=== PATIENT | male | born 1940 | race Caucasian/White ===

== ENCOUNTER 2017-10-31 12:39 | Observation (INO) | payer MEDICARE ==
[2017-10-31 13:17] LABS: ABS Basophils 0 10^3/ul (0-0.2); ABS Eosinophils 0 10^3/ul (0-0.6); ABS Lymphocytes 1.8 10^3/ul (1.0-4.8); ABS Monocytes 0.5 10^3/ul (0-0.8); ABS Neutrophils 7.8 10^3/ul (1.5-7.7); ABS Nucleated RBC 0 10^3/ul; Eosinophil % 0.1 % (0-6); Hematocrit 46 % (42-52); Hemoglobin 15.5 g/dl (14.0-18.0); Lymphocyte % 17.5 % (25-47); Mean Corpuscular HGB Conc 34 g/dl (31-36); Mean Corpuscular Hemoglobin 31 pg (27-31); Mean Corpuscular Volume 91 fL (80-94); Mean Platelet Volume 8 um3 (7.4-10.4); Nucleated Red Blood Cells % 0; Platelet Count 219 10^3/ul (150-450); Red Blood Count 5.03 10^6/ul (4.0-5.4); Red Cell Distribution Width 14 % (10.5-15); White Blood Count 10.1 10^3/ul (3.5-10.8)
[2017-10-31] MEDS ORDERED: hydrALAZINE IV* 20 MG/ML VIAL IV SLOW PU ONE (13:43)
[2017-10-31 13:48] LABS: EGFR Non-African American 82.3 (>60); INR 3.43 (0.77-1.02)
[2017-10-31] MEDS ORDERED: Aspirin TAB* 325 MG PO ONE (14:01)
[2017-10-31] MEDS ORDERED: Iodixanol* (CONTRAST) 320 MG/ML 100 ML SDV IV ONE (14:37)
--- NOTE | 2017-10-31 15:03 | RAD ---
INDICATION: Chest pain COMPARISON: Similar chest x-ray April 22, 2010 TECHNIQUE: Single AP portable view of the chest was obtained. FINDINGS: Image quality is compromised due to the relative inferiority of a portable chest x-ray. The heart and mediastinum exhibit normal size and contour. The lungs are grossly clear. There is no evidence of a large pleural effusion. Visualized bones are normal for the patient's age. IMPRESSION: No radiographic evidence for acute cardiopulmonary abnormality on this portable chest x-ray.
--- NOTE | 2017-10-31 15:26 | RAD ---
INDICATION: Dizziness and hypertension COMPARISON: CT of the brain dated August 07, 2010 TECHNIQUE: Contiguous axial sections of the brain were obtained from the skull base to the vertex without contrast. FINDINGS: The ventricles, cisterns and sulci exhibit mild symmetrical involutional changes, particularly around the periphery of the brain. This appearance is similar to the 2010 CT examination.. The campa-white matter differentiation is adequately maintained and there is no sulcal effacement. No significant focal abnormality or mass effect is present. There is no evidence for intracranial hemorrhage. Along the right of midline inner table of the occiput there is a low-attenuation 1.5 cm structure possibly representing a complex meningeal cyst. This is unchanged from the prior CT the brain. No significant focal osseous abnormality is present. The visualized portion of the paranasal sinuses appear clear. The mastoid air cells are well aerated bilaterally. IMPRESSION: Stable chronic findings as described above relative to the August 07, 2010 CT the brain without evidence of acute intracranial abnormality.
--- NOTE | 2017-10-31 15:33 | RAD ---
STUDY: CT angiography of the chest, abdomen and pelvis. INDICATION: Chest pain radiating to the back COMPARISON: CT of the chest dated August 18, [address] of the abdomen dated July 09, 2006 TECHNIQUE: Multidetector CT angiography of the chest, abdomen and pelvis were obtained from the lung apices to the ischial tuberosities after the intravenous injection of 100 mL Visipaque 320. Reformats were created in the coronal and sagittal planes. 3-D vascular imaging was created from the source images and reviewed as well. ANGIOGRAPHIC FINDINGS: There is no pathologic widening of the thoracic or abdominal aorta. No dissection is identified. The branch vessels from the arch of the aorta appear to be adequately patent as are the major branch vessels from the abdominal aorta. Contrast fills the bilateral iliac arteries and continues into the proximal femoral arteries. NON ANGIOGRAPHIC FINDINGS: Chest: The lungs are clear. There are no large pleural effusions. There is no mediastinal or hilar lymphadenopathy. There are coronary artery calcifications. Otherwise the heart is grossly normal in appearance. Abdomen & Pelvis: The liver, spleen, pancreas and adrenal glands are grossly normal in appearance. The gallbladder is normal. The kidneys are normal in appearance without focal mass, calcification or signs of hydronephrosis. The renal cortices enhance promptly and symmetrically on arterial phase imaging. Evaluation of the gastrointestinal tract is limited in the absence of oral contrast. The small and large bowel are not distended. The normal-appearing diminutive appendix is likely identified in the right lower quadrant (coronal image 39). Scattered colonic diverticula are seen without signs of acute inflammatory changes characteristic of diverticulitis. There is no gross retroperitoneal or mesenteric lymphadenopathy. The pelvic viscera is normal in appearance. Degenerative changes of the thoracic and lumbar spine include loss of intervertebral disc height and scattered marginal osteophyte formation. No acute fracture or dislocation is identified. IMPRESSION: 1. No aortic dissection, pathologic aneurysmal dilatation or other acute vascular abnormality is identified. 2. There are chronic and degenerative changes described in the body the report that are unlikely to be related to the patient's current acute presentation.
[2017-10-31] MEDS ORDERED: Morphine INJ* 4 MG/ML 1 ML CARPUJECT IV PRN (16:24)
[2017-10-31] MEDS ORDERED: hydrALAZINE IV* 20 MG/ML VIAL IV SLOW PU PRN (16:28)
[2017-10-31] MEDS ORDERED: Dextrose 50% Syringe 50 ML* 25 GM/50 ML SYRINGE IV PUSH PRN (16:34)
[2017-10-31] MEDS ORDERED: Calcium Carbonate CHEW TAB* 500 MG (TUMS) PO PRN (17:17)
[2017-10-31] MEDS: Warfarin TAB(*) 4 MG PO SCH (17:32)
[2017-10-31] MEDS: amLODIPine TAB* 5 MG PO SCH (17:32)
[2017-10-31] MEDS ORDERED: Al Hydrox/Mg Hydrox/Simet LIQ* 30 ML UDC PO PRN (18:59)
--- NOTE | 2017-10-31 20:43 | HP ---
CC: Dr. Verma * [facility] MEDICINE HISTORY AND PHYSICAL: DATE OF ADMISSION: 10/31/17 PRIMARY CARE PHYSICIAN: Dr. Verma. ATTENDING PHYSICIAN: Dr. Marbella Knight *(dictation provided by Radha Dan NP) . CHIEF COMPLAINT: Lightheadedness and low heart rate. HISTORY OF PRESENT ILLNESS: Mr. Lott is a 76-year-old male with a past medical history of diabetes, which is insulin dependent and history of PE on warfarin therapy, who presents to the hospital today with concern for episode this morning of lightheadedness with diaphoresis and noted low heart rate. Mr. Lott states that he has had some issues on and off for the past month with lightheadedness. Over the past two weeks, he has noted it almost everyday. He has also had some intermittent pain in his right shoulder, for which he takes hydrocodone. This morning, when he awoke, he was lightheaded. He also had pain in his right shoulder. He therefore took three hydrocodone as well as his other morning medications. He had his take his blood pressure and she noted it was elevated, but he does not remember the exact read. She also noted that his heart rate was low in the 40s, which seemed unusual for him though he does not know what his heart rate is usually. This low heart rate caused her to be concerned and she encouraged him to come to the emergency room for evaluation. In addition to the complaints of this lightheadedness and right shoulder pain, which is intermittent, he also notes an episode in the fall when he was deer hunting when he walked about 100 feet and became very short of breath and had severe chest pain with a feeling of palpitations. He had a similar episode to that on when he was walking from a driveway into the home, again with severe chest pain, rapid heart rate and shortness of breath. 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 He had a stress test back in 2004 here at our hospital, which was normal exercise test. Beyond this, the patient' s only other positive review of systems is a sensation of popping and pressure in his left ear. 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 In the emergency room, Mr. Lott had labs, which showed a normal troponin at 0.00. His INR is slightly up at 3.43. He is on chronic warfarin therapy for history of DVT and PE. His vitals are stable other than the fact that his blood pressure was elevated as high as 216 on arrival, but now running about 187 /67. His chest x-ray shows no acute process as well as his chest, abdomen and pelvis CTA shows no evidence of aneurysm. PAST MEDICAL HISTORY: 1. 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 2. Prostate cancer, status post radiation. 3. Type 2 diabetes, insulin dependent. 4. Hypertension. 5. Hypothyroidism. MEDICATIONS: Outpatient are: 1. NovoLog insulin 0-18 units approximately subcutaneously t.i.d. per sliding scale. 2. Hydrocodone 5/325 mg as needed for pain. 3. Levothyroxine 150 mcg p.o. daily. 4. Canagliflozin 100 mg p.o. daily. 5. Warfarin 5 mg p.o. daily. 6. Lisinopril 40 mg p.o. daily. 7. Lantus insulin 40 units subcutaneously q.p.m. ALLERGIES: No known drug allergies. FAMILY HISTORY: The patient reports that almost all of the members of his family have a cancer. His mother had breast cancer and of that. Father had prostate cancer. He is one of 13 children and only three siblings are remain alive. He states that all of his brothers had prostate cancer and all of his sisters had breast cancer. He has three sons who have not had any issue with prostate cancer. SOCIAL HISTORY: The patient was a smoker. He smoked for 38 years. He quit in 1979. There is no report of alcohol or drug use. He lives with his , his healthcare proxy. REVIEW OF SYSTEMS: A 14-point review of systems was completed with Mr. Lott and all those not mentioned above were negative. PHYSICAL EXAMINATION GENERAL: Mr. Lott is sitting in the bed. He is in no acute distress. VITAL SIGNS: Temperature 95.1, pulse rate 57, respiratory rate 16, O2 saturation 97% and 93% on room air, blood pressure 187/67. LUNGS: Clear to auscultation bilaterally with no accessory muscle use and good aeration. HEART: S1, S2. No murmur, rub, or gallop and regular. ABDOMEN: Protuberant, but soft, nontender with bowel sounds positive x4. EXTREMITIES: No cyanosis or edema. NEURO: He is alert. He is oriented x3. He moves all extremities equally. There is no facial asymmetry or focal weakness. Extraocular movements are intact. SKIN: Intact. DIAGNOSTIC STUDIES/LAB DATA: WBC 10.0, hemoglobin 15.5, hematocrit 46, platelet count 219. INR 3.43. D-dimer less than 200. Sodium 138, potassium 3.7, chloride 101, serum bicarbonate 28, BUN 15, creatinine 0.9, serum glucose 157, lactic acid 1.8. Troponin is 0.00. EKG shows a sinus rhythm with bradycardia with a heart rate of about 40 with no evidence of ischemia. Chest x-ray shows "no radiographic evidence for acute cardiopulmonary abnormality on this portable chest x-ray." The chest, abdomen, and pelvis CT is read as follows: "No aortic dissection, pathological aneurysmal dilatation. No other acute vascular abnormalities identified. There are chronic and degenerative changes described in the body of the report that are unlikely to be related to the patient's current acute presentation." CT brain is as follows: "Stable chronic findings as described above related to 08/07/10. CT of the brain without evidence of acute intracranial abnormality." ASSESSMENT AND PLAN: Mr. Lott is a 76-year-old male with a past medical history of obesity, distant history of smoking and insulin-dependent diabetes with hypertension, who presents today to the hospital with concern for lightheadedness. This has been going off and on for a month now with concern for perhaps a new bradycardia. On conversation, the patient further describes episodes of severe chest pain with shortness of breath with rapid heart rate with limited exertion. Our plans are for observation in the hospital for the followin. Lightheadedness. The patient reports being lightheaded on and off for a month. He felt very lightheaded today and his heart rate was low. It was unclear what his baseline heart rate is, but here in the emergency room he is running about 50 with a sinus bradycardia. Given the overall description of his complaints over the past few months, I do not necessarily suspect that bradycardia is the root of his illness and I am more concerned for coronary artery disease and unstable angina. His first troponin is negative. Plan to repeat troponins x2. He will be on the electronic device monitor. He will have a transthoracic echocardiogram and Dr. Blake will consult with him tomorrow or sooner if needed should his testing or symptoms become more concerning. I will check orthostatic vital signs. 2. Chest pain with exertion and concern for unstable angina: The patient reports a rapid heart rate, chest pain and shortness of breath with limited activity on two separate occasions. I am very concerned that this reflects coronary artery disease. Plan for telemetry monitoring, troponin trending and echocardiogram tomorrow. Dr. Blake will see the patient in consultation. He will have morphine available as needed should he develop pain as well as repeat EKGs, nitroglycerin and oxygen. 3. Type 2 diabetes. Plan to start with a reduced dose of his p.m. Lantus given that I suspect to have more limited oral intake than at home. He will have 30 units subcutaneously tonight with blood glucoses q.a.c. with a lispro sliding scale. We will check hemoglobin A1c. 4. Hypertension. Continue lisinopril. I am also adding amlodipine and have her hydralazine available p.r.n. 5. History of DVT and PE. Plan to continue warfarin at a slightly lower dose this evening of 4 mg given that he is supratherapeutic. 6. Chronic right shoulder pain. Plan to continue hydrocodone p.r.n. 7. Hypothyroidism. Continue levothyroxine. 8. Code status is full code. This was reviewed with the patient today at the bedside. 9. Disposition to telemetry floor. TIME SPENT: Approximately 60 minutes were spent on the admission of this patient, more than half of the time was spent with the patient at the bedside reviewing the events leading up to this hospitalization, performing the physical examination, and reviewing my plan of care. RADHA DAN, EMILIE [id number]/[facility] #: [id number] CHER
[2017-10-31] MEDS: Insulin GLARGINE(*) 1 UNITS UNIT SUBCUT SCH (21:14)
[2017-11-01] MEDS: HYDROcodone/ACETAMIN 5-325 MG* 1 TAB PO PRN ×2 (03:39→19:52)
[2017-11-01] MEDS: Levothyroxine TAB* 150 MCG TAB PO SCH (05:41)
[2017-11-01 07:15] LABS: INR 3.24 (0.77-1.02)
[2017-11-01] MEDS: Lisinopril TAB* 10 MG PO SCH (09:02)
[2017-11-01] MEDS: amLODIPine TAB* 5 MG PO SCH (09:02)
[2017-11-01] MEDS: Insulin LISPRO* 1 UNITS UNIT SUBCUT SCH ×3 (09:02→17:43)
[2017-11-01] MEDS ORDERED: Perflutren Lipid Microsphere* 3 ML VIAL ONE (11:39)
--- NOTE | 2017-11-01 12:53 | PN ---
Subjective Date of Service: 11/01/17 Interval History: Patient seen and examined. States no SOB at rest, no current dizziness or palpitations at present. Sitting up in chair. Denies any further complaints. Objective Active Medications: Hydrocodone Bitart/Acetaminophen ([place] 5-325 Tab*) 1 tab PO Q4H PRN PRN Reason: PAIN Last Admin: 11/01/17 03:39 Dose: 1 tab Al Hydrox/Mg Hydrox/Simethicone (Maalox Plus*) 30 ml PO Q2H PRN PRN Reason: INDIGESTION Amlodipine Besylate (Norvasc Tab*) 5 mg PO DAILY [facility] Last Admin: 11/01/17 09:02 Dose: 5 mg Calcium Carbonate (Tums*) 500 mg PO Q4H PRN PRN Reason: HEARTBURN Last Admin: 10/31/17 17:31 Dose: 500 mg Dextrose (D50w Syringe 50 Ml*) 12.5 gm IV PUSH .FOR FS < 60 - SS PRN PRN Reason: FS < 60 Hydralazine HCl (Apresoline Iv*) 5 mg IV SLOW PU Q6H PRN PRN Reason: SBP > 180 Insulin Glargine (Lantus(*)) 30 units SUBCUT 2100 [facility] Last Admin: 10/31/17 21:14 Dose: 30 unit Insulin Human Lispro (Humalog*) 0 units SUBCUT AC [facility] PRN Reason: Protocol Last Admin: 11/01/17 09:02 Dose: Not Given Levothyroxine Sodium (Synthroid Tab*) 150 mcg PO DAILY@0600 [facility] Last Admin: 11/01/17 05:41 Dose: 150 mcg Lisinopril (Prinivil Tab*) 40 mg PO DAILY [facility] Last Admin: 11/01/17 09:02 Dose: 40 mg Morphine Sulfate (Morphine Inj (Syringe)*) 4 mg IV Q4H PRN PRN Reason: PAIN Pharmacy Profile Note (Coumadin Daily Reminder*) 0 note FOLLOW UP 1700 [facility] Last Admin: 10/31/17 17:33 Dose: 1 note Warfarin Sodium (Coumadin Tab(*)) 4 mg PO DAILY@1700 [facility] PRN Reason: Protocol Last Admin: 10/31/17 17:32 Dose: 4 mg Vital Signs - 8 hr 11/01/17 11/01/17 11/01/17 05:46 07:36 08:00 Temperature 97.4 F Pulse Rate 58 Respiratory 20 16 16 Rate Blood Pressure 147/57 (mmHg) O2 Sat by Pulse 98 98 Oximetry 11/01/17 11:04 Temperature 97.4 F Pulse Rate 63 Respiratory 16 Rate Blood Pressure 143/67 (mmHg) O2 Sat by Pulse 97 Oximetry Oxygen Devices in Use Now: None Appearance: Alert, NAD Eyes: No Scleral Icterus, PERRLA Ears/Nose/Mouth/Throat: NL Teeth, Lips, Gums Neck: NL Appearance and Movements; NL JVP Respiratory: Symmetrical Chest Expansion and Respiratory Effort, Clear to Auscultation Cardiovascular: NL Sounds; No Murmurs; No JVD, RRR, No Edema Abdominal: NL Sounds; No Tenderness; No Distention Extremities: No Edema, No Clubbing, Cyanosis Skin: No Rash or Ulcers Neurological: Alert and Oriented x 3, NL Sensation, NL Gait, NL Muscle Strength and Tone Nutrition: Taking PO's, - Result Diagrams: 10/31/17 13:02 10/31/17 13:02 Assess/Plan/Problems-Billing Assessment: This is a 76 year old male with history of DVT, PE, DM, hypothyroidism that presented to ER with c/o palpitations, lightheadedness and dizziness, with negative troponins and no acute changes on his EKG. - Patient Problems (1) Heart palpitations Code(s): R00.2 - PALPITATIONS SNOMED Code(s): 76957976 Comment: - Remain on tele - Recommend stress test, trop neg x2 - Walking did not induce symptoms, discussed with Dr. Blake - Pending ECHO today (2) History of pulmonary embolus (PE) Code(s): Z86.711 - PERSONAL HISTORY OF PULMONARY EMBOLISM SNOMED Code(s): 449408580 Comment: - On coumadin - INR 3.24 today - CT chest/abd/pelvis with no new findings (3) Diabetes Code(s): E11.9 - TYPE 2 DIABETES MELLITUS WITHOUT COMPLICATIONS SNOMED Code(s) : 64549069 Comment: - BG stable on lantus and lispro SS (4) Hypertension Code(s): I10 - ESSENTIAL (PRIMARY) HYPERTENSION SNOMED Code(s): 78319042 Comment: - Continue lisinopril daily with hydralizine PRN (5) Hypothyroid Code(s): E03.9 - HYPOTHYROIDISM, UNSPECIFIED SNOMED Code(s): 79299647 Comment: - Synthroid daily Status and Disposition: Remain inpatient for ECHO and stress r/o ACS Counseling and/or Coordination of Care Minutes: coordinated with patient and Dr. Blake
--- NOTE | 2017-11-01 13:55 | ECHO ---
Patient: ELLIE WALDRON [facility] Rec#: [id number] : 1940 Date: 11/01/2017 Age: 76y Height: 182.88 cm / 72.0 in Weight: 133.81 kg / 294.9 lbs Sex: M BSA: 2.51 Room#: 431 Admit Date#: 10/31/2017 Type: Inpatient Referring: Radha Dan NP Reading: Lidia Blake MD Exercise Physiologist Certified: Kendy Vasques RDCS CC: Demarcus Verma MD Transthoracic Echocardiogram Indication: CP BP: 148/60 HR: 86 Rhythm: NSR Findings History: PE with DVT in the past,prostate cancer with radiation,DM,HTN, hypothyroid. Technical Comments: The study is technically limited due to patient body habitus. 4 ml Definity used for image enhancement. Left Ventricle: The left ventricular chamber size is normal. Moderate concentric left ventricular hypertrophy is observed. There is normal left ventricular systolic function. The estimated ejection fraction is 50-55%. Abnormal left ventricular diastolic function is observed. Left Atrium: The left atrial chamber size is normal. Right Ventricle: The right ventricle is mildly dilated. The right ventricular global systolic function is normal. Right Atrium: The right atrial cavity size is normal. Aortic Valve: The aortic valve is trileaflet. The aortic valve leaflets appear mildly sclerotic. There is no evidence of aortic regurgitation. There is no evidence of aortic stenosis. Mitral Valve: The mitral valve leaflets appear normal. There is a trace of mitral regurgitation. There is no evidence of mitral stenosis. Tricuspid Valve: The tricuspid valve leaflets are normal. There is a physiologic tricuspid regurgitation. Unable to estimate the right ventricular systolic pressure. There is no tricuspid stenosis. Pulmonic Valve: The pulmonic valve appears normal. There is trace to mild pulmonic regurgitation. There is no pulmonic stenosis. Pericardium: A pericardial fat pad is visualized. Aorta: There is mild dilatation of the ascending aorta. There is mild dilatation of the aortic root. Pulmonary Artery: The main pulmonary artery appears normal. Venous: The venous system is not well visualized. Contrast: Definity was used to optimize study. Intravenous contrast was used to enhance endocardial border definition. Conclusions Moderate concentric left ventricular hypertrophy is observed. There is normal left ventricular systolic function. The estimated ejection fraction is 50-55%. Abnormal left ventricular diastolic function is observed. The right ventricular global systolic function is normal with mild chamber dilatation. The aortic valve leaflets appear mildly sclerotic with normal function. There is a trace of mitral regurgitation. There is a trace tricuspid regurgitation. Compared with prior echo of 06/06/2007, LVH has progressed from mild, LVEF is stable, MR previously mild. There is mild dilatation of the ascending aorta. Measurements Name Value Normal Range RVIDd (AP) 2D 3 cm (0.9 - 2.6) IVSd (2D) 1.6 cm (0.6 - 1) LVPWd (2D) 1.2 cm (0.6 - 1) LVIDd (2D) 3.7 cm (3.6 - 5.4) LVIDs (2D) 2.9 cm - LV FS (2D) 17 % (25 - 45) Aortic Annulus 2.4 cm (1.4 - 2.6) Ao root diameter (2D) 3.9 cm (2.1 - 3.5) Ascending Ao 3.5 cm (2.1 - 3.4) Aortic arch 3.1 cm (1.8 - 3.4) Descending Ao 0.6 cm - LA dimension (AP) 2D 3.3 cm (2.3 - 3.8) Name Value Normal Range MV E-wave Vmax 0.8 m/sec - MV deceleration time 274 msec - MV A-wave Vmax 0.9 m/sec - MV E:A ratio 0.88 ratio - LV septal e' Vmax 0.07 m/sec - LV lateral e' Vmax 0.07 m/sec - LV E:e' septal ratio 11.42 ratio - LV E:e' lateral ratio 11.42 ratio - Name Value Normal Range AV Vmax 1.4 m/sec - AV VTI 28.9 cm - AV peak gradient 7.32 mmHg - AV mean gradient 3.3 mmHg - LVOT Vmax 1.1 m/sec - LVOT VTI 27.2 cm - LVOT peak gradient 4.49 mmHg - LVOT mean gradient 1.99 mmHg - Name Value Normal Range PV Vmax 1 m/sec - PV peak gradient 4.09 mmHg -
[2017-11-01] MEDS: Warfarin TAB(*) 4 MG PO SCH (17:46)
[2017-11-01] MEDS: Insulin GLARGINE(*) 1 UNITS UNIT SUBCUT SCH (20:11)
--- NOTE | 2017-11-01 22:47 | CONS ---
CC: Dr. Demarcus Verma * CONSULTATION REPORT: DATE OF CONSULT: 11/01/17 REASON FOR CONSULT: Diaphoresis and bradycardia. CHIEF COMPLAINT: Intermittent lightheadedness. HISTORY OF PRESENT ILLNESS: Mr. Lott is a 76-year-old gentleman with no prior identified cardiac history, but he has multiple atherosclerotic risks. The patient states that he has had several episodes of excise-induced problems. Earlier in the year when he was hunting, he got very winded and lightheaded and his heart was racing and he had significant chest pain with this. Then on , he took a short walk and his heart was pounding and he rested and it took 2 hours for his heart pounding to resolve. The patient says he will feel okay in the morning, but when he stands up he will get lightheaded. He checked his sugar more than once and most recently it was 112 and he typically does not get symptoms unless it is below 100. On the day of admission, the patient had some pain in the right shoulder for which he took oxycodone but had already developed lightheadedness and sweatiness. His checked his vitals and found his heart rate in the 40s. He said his heart rate is usually in the 90s, so they came to the emergency department. The patient states that he has also had recent elevations in blood pressure. He is not sure why his blood pressure is up. There are no new medications. He admits that he does not watch his salt, but does not think he has been eating particularly differently. PAST MEDICAL HISTORY: The patient has a past medical history of: 1. Type 2 diabetes with peripheral neuropathy, insulin dependent. 2. Hypertension, 3. Hypothyroid disease. 4. Morbid obesity. 5. Pulmonary embolus in 2006. 6. 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 7. Prostate cancer status post radiation. 8. Sleep apnea per patient. 9. Degenerative arthritis. PAST SURGICAL HISTORY: Per patient, two operations for sleep apnea. MEDICATIONS: Current inpatient medications include: 1. Tylenol with Codeine p.r.n. 2. Maalox p.r.n. 3. Norvasc 5 mg a day. 4. Tums p.r.n. heartburn. 5. Hydralazine p.r.n. 6. Lantus insulin. 7. Lispro insulin. 8. Synthroid 150 mcg a day. 9. Lisinopril 40 mg a day. 10. Morphine p.r.n. 11. Coumadin. ALLERGIES: He has no known drug allergies. FAMILY HISTORY: Significant for his brother of a heart attack in the [facility] parking lot at the age of 54. His mother has a history of breast cancer, father has history of prostate cancer. He is from a family of 13 siblings with multiple siblings having breast cancer and prostate cancer. SOCIAL HISTORY: The patient stopped smoking in 1979. No history of alcohol or recreational drug abuse. He works actively in a [employer] company. He says the most active thing he does is hoisting himself up into the trucks. REVIEW OF SYSTEMS: Negative for recent fevers, chills, sweats. He is positive for orthopnea. He sleeps in a chair and has some significant trouble breathing. No acute changes. No constipation or diarrhea. He does admit to chronic indigestion for which he takes an [id number] pill with good results. He had indigestion last night with a meal here. His indigestion symptoms do not come on with exertion. He describes peripheral neuropathy in the feet and other review of systems is unremarkable, see history of present illness for recent chest pounding, racing, chest pain, lightheadedness and his 's documenting bradycardia. PHYSICAL EXAMINATION: General: Elderly gentleman lying at 30 degrees, appears comfortable very obese, predominantly centripetally obese. Vital Signs: The patient is 6 feet, weighs 284 pounds with a BMI of 38.5. Vital signs today showed blood pressure 147/57 with a pulse of 57. Admission vitals showed blood pressure 216/68, pulse was 49, oxygen saturation 94%, temperature 95.1, respiratory rate was 20. Psychologically, pleasant and cooperative. Neurologically, awake, alert and oriented to person, place and time. Cranial nerves II through XII intact. Grossly normal sensory and motor function in the upper and lower extremities, gait not checked at this time. Skin: Warm and dry. No appreciable cyanosis or rashes. HEENT: Pupils are equal and round. Mucous membranes moist. Neck: Thick from obesity without appreciable thyromegaly. Good carotid pulses without audible bruits. Lungs: Breath sounds distant from obesity, but clear. No wheezes, rales, or rhonchi. He has a small sebaceous cyst noted on his left posterior shoulder incidentally. Coronary: S1 and S2 regular also distant, but no murmurs or rubs. Abdomen: Very overweight. Active bowel sounds, soft, nontender. No appreciable hepatomegaly. Extremities: Lower extremities are nonedematous, warm with 1-2+ dorsalis pedis pulses that are symmetrical. DIAGNOSTIC STUDIES/LAB DATA: A 12-lead ECG on arrival at the emergency department on 10/31/17 showed sinus bradycardia at 45 beats a minute, QRS axis of -15, normal AV and IV conduction times, normal ST segments. Corrected QT interval of 439 milliseconds. When this is compared with a previous ECG of , the rate has decreased from 60 beats a minute, but is otherwise stable. ECG #2 from the shows normal sinus rhythm of 81 beats a minute, QRS axis -7 , normal AV and IV conduction times and normal ST segment. CT angiogram of the chest and abdomen showed no dissection, degenerative changes noted. Brain CT showed stable chronic findings, low attenuation 1.5 cm structure possibly a complex meningeal cyst unchanged from ECG of 2009 Chest x-ray: No acute disease. The most recent echo in our system is 2006 showing mild left ventricular hypertrophy with a wall thickness of 1.3 cm and an ejection fraction of 55% and no evidence of significant valvular issues. The right ventricular systolic function was normal. Labs: Sodium 138, potassium 3.7, chloride 101, bicarb 28, BUN 15, creatinine 0.9, glucose 157, ALT 23. Total cholesterol 178, triglycerides 201, LDL cholesterol 102, HDL cholesterol 36. White count 10.1, hemoglobin 15.5, platelets 219, INR of 4.43, and PTT 50. IMPRESSION: In summary, Joi Lott is a 76-year-old gentleman with several episodes recently, a couple of exertional symptoms with chest pounding and chest pain that are new for him and several episodes of feeling lightheaded and most recently an episode of diaphoresis and lightheadedness associated with low blood pressure. On admission, the patient was bradycardic and hypertensive with an otherwise unremarkable EKG, normal troponin. It is possible that uncontrolled hypertension could be behind his acute presentation. Saying this, his symptoms with hunting and on are concerning for a possible angina and/or possible tachyarrhythmia. In addition to the rule out protocol and optimization of blood pressure control, I do think the patient should undergo a stress test, ideally an exercise stress test if his arthritis allows. I think this is especially important with his brother's history of dying at age 54 of a heart attack. In the interim, I would like to ambulate him on the telemetry on the floor. To date his monitor has not shown symptomatic bradycardia, has not shown blocked beats, dropped beats or tachyarrhythmias. This patient going forward with optimization of lifestyle with weight loss and better diet would be optimal to improve his atherosclerotic and general health risk. [id number]/[facility] #: [id number] CHER
[2017-11-02] MEDS: Levothyroxine TAB* 150 MCG TAB PO SCH (05:03)
[2017-11-02] MEDS: Insulin LISPRO* 1 UNITS UNIT SUBCUT SCH ×3 (08:28→17:25)
[2017-11-02] MEDS: amLODIPine TAB* 5 MG PO SCH (08:29)
[2017-11-02] MEDS: Lisinopril TAB* 10 MG PO SCH (08:29)
--- NOTE | 2017-11-02 11:21 | PN ---
Subjective Date of Service: 11/02/17 Interval History: Patient seen and examined. No acute overnight events. Denies chest pain, no SOB. Feeling well. States no further episodes of dizziness or near syncope. Had walk test around the unit yesterday with no changes on tele and no replication of symptoms. Objective Active Medications: Hydrocodone Bitart/Acetaminophen ([place] 5-325 Tab*) 1 tab PO Q4H PRN PRN Reason: PAIN Last Admin: 11/01/17 19:52 Dose: 1 tab Al Hydrox/Mg Hydrox/Simethicone (Maalox Plus*) 30 ml PO Q2H PRN PRN Reason: INDIGESTION Amlodipine Besylate (Norvasc Tab*) 5 mg PO DAILY [facility] Last Admin: 11/02/17 08:29 Dose: 5 mg Calcium Carbonate (Tums*) 500 mg PO Q4H PRN PRN Reason: HEARTBURN Last Admin: 10/31/17 17:31 Dose: 500 mg Dextrose (D50w Syringe 50 Ml*) 12.5 gm IV PUSH .FOR FS < 60 - SS PRN PRN Reason: FS < 60 Hydralazine HCl (Apresoline Iv*) 5 mg IV SLOW PU Q6H PRN PRN Reason: SBP > 180 Insulin Glargine (Lantus(*)) 30 units SUBCUT 2100 [facility] Last Admin: 11/01/17 20:11 Dose: 30 unit Insulin Human Lispro (Humalog*) 0 units SUBCUT AC [facility] PRN Reason: Protocol Last Admin: 11/02/17 08:28 Dose: 3 units Levothyroxine Sodium (Synthroid Tab*) 150 mcg PO DAILY@0600 [facility] Last Admin: 11/02/17 05:03 Dose: 150 mcg Lisinopril (Prinivil Tab*) 40 mg PO DAILY [facility] Last Admin: 11/02/17 08:29 Dose: 40 mg Morphine Sulfate (Morphine Inj (Syringe)*) 4 mg IV Q4H PRN PRN Reason: PAIN Pharmacy Profile Note (Coumadin Daily Reminder*) 0 note FOLLOW UP 1700 [facility] Last Admin: 11/01/17 17:46 Dose: 1 note Warfarin Sodium (Coumadin Tab(*)) 4 mg PO DAILY@1700 [facility] PRN Reason: Protocol Last Admin: 11/01/17 17:46 Dose: 4 mg Vital Signs - 8 hr 11/02/17 11/02/17 11/02/17 03:47 07:43 08:00 Temperature 97.4 F 97.9 F Pulse Rate 65 61 Respiratory 16 16 16 Rate Blood Pressure 153/69 156/64 (mmHg) O2 Sat by Pulse 98 98 98 Oximetry Oxygen Devices in Use Now: None Appearance: Alert, resting, NAD Eyes: No Scleral Icterus, PERRLA Ears/Nose/Mouth/Throat: NL Teeth, Lips, Gums, Mucous Membranes Moist Neck: NL Appearance and Movements; NL JVP, Trachea Midline Respiratory: Symmetrical Chest Expansion and Respiratory Effort, Clear to Auscultation Cardiovascular: NL Sounds; No Murmurs; No JVD, RRR Abdominal: NL Sounds; No Tenderness; No Distention Extremities: No Edema Neurological: Alert and Oriented x 3 Nutrition: Taking PO's Result Diagrams: 10/31/17 13:02 10/31/17 13:02 Diagnostic Imaging: Patient: ELLIE WALDRON [facility] Rec#: [id number] : 1940 Date: 11/01/2017 Age: 76y Height: 182.88 cm / 72.0 in Weight: 133.81 kg / 294.9 lbs Sex: M BSA: 2.51 Room#: 431 Admit Date#: 10/31/2017 Type: Inpatient Referring: Radha Dan NP Reading: Lidia Blake MD Attorney At Law: Kendy Vasques RDCS CC: Demarcus Verma MD Transthoracic Echocardiogram Indication: CP BP: 148/60 HR: 86 Rhythm: NSR Findings History: PE with DVT in the past,prostate cancer with radiation,DM,HTN, hypothyroid. Technical Comments: The study is technically limited due to patient body habitus. 4 ml Definity used for image enhancement. Left Ventricle: The left ventricular chamber size is normal. Moderate concentric left ventricular hypertrophy is observed. There is normal left ventricular systolic function. The estimated ejection fraction is 50-55%. Abnormal left ventricular diastolic function is observed. Left Atrium: The left atrial chamber size is normal. Right Ventricle: The right ventricle is mildly dilated. The right ventricular global systolic function is normal. Right Atrium: The right atrial cavity size is normal. Aortic Valve: The aortic valve is trileaflet. The aortic valve leaflets appear mildly sclerotic. There is no evidence of aortic regurgitation. There is no evidence of aortic stenosis. Mitral Valve: The mitral valve leaflets appear normal. There is a trace of mitral regurgitation. There is no evidence of mitral stenosis. Tricuspid Valve: The tricuspid valve leaflets are normal. There is a physiologic tricuspid regurgitation. Unable to estimate the right ventricular systolic pressure. There is no tricuspid stenosis. Pulmonic Valve: The pulmonic valve appears normal. There is trace to mild pulmonic regurgitation. There is no pulmonic stenosis. Pericardium: A pericardial fat pad is visualized. Aorta: There is mild dilatation of the ascending aorta. There is mild dilatation of the aortic root. Pulmonary Artery: The main pulmonary artery appears normal. Venous: The venous system is not well visualized. Contrast: Definity was used to optimize study. Intravenous contrast was used to enhance endocardial border definition. Conclusions Moderate concentric left ventricular hypertrophy is observed. There is normal left ventricular systolic function. The estimated ejection fraction is 50-55%. Abnormal left ventricular diastolic function is observed. The right ventricular global systolic function is normal with mild chamber dilatation. The aortic valve leaflets appear mildly sclerotic with normal function. There is a trace of mitral regurgitation. There is a trace tricuspid regurgitation. Compared with prior echo of 06/06/2007, LVH has progressed from mild, LVEF is stable, MR previously mild. There is mild dilatation of the ascending aorta. Measurements Name Value Normal Range RVIDd (AP) 2D 3 cm (0.9 - 2.6) IVSd (2D) 1.6 cm (0.6 - 1) LVPWd (2D) 1.2 cm (0.6 - 1) LVIDd (2D) 3.7 cm (3.6 - 5.4) LVIDs (2D) 2.9 cm - LV FS (2D) 17 % (25 - 45) Aortic Annulus 2.4 cm (1.4 - 2.6) Ao root diameter (2D) 3.9 cm (2.1 - 3.5) Ascending Ao 3.5 cm (2.1 - 3.4) Aortic arch 3.1 cm (1.8 - 3.4) Descending Ao 0.6 cm - LA dimension (AP) 2D 3.3 cm (2.3 - 3.8) Name Value Normal Range MV E-wave Vmax 0.8 m/sec - MV deceleration time 274 msec - MV A-wave Vmax 0.9 m/sec - MV E:A ratio 0.88 ratio - LV septal e' Vmax 0.07 m/sec - LV lateral e' Vmax 0.07 m/sec - LV E:e' septal ratio 11.42 ratio - LV E:e' lateral ratio 11.42 ratio - Name Value Normal Range AV Vmax 1.4 m/sec - AV VTI 28.9 cm - AV peak gradient 7.32 mmHg - AV mean gradient 3.3 mmHg - LVOT Vmax 1.1 m/sec - LVOT VTI 27.2 cm - LVOT peak gradient 4.49 mmHg - LVOT mean gradient 1.99 mmHg - Name Value Normal Range PV Vmax 1 m/sec - PV peak gradient 4.09 mmHg - Assess/Plan/Problems-Billing Assessment: This is a 76 year old male with history of DVT, PE, DM, hypothyroidism that presented to ER with c/o palpitations, lightheadedness and dizziness, with negative troponins and no acute changes on his EKG, but strong familial history of sudden cardiac . - Patient Problems (1) Heart palpitations Code(s): R00.2 - PALPITATIONS SNOMED Code(s): 49846860 Comment: - Remain on tele - Exercise stress in AM - trop neg x2 - ECHO as above, no acute changes (2) History of pulmonary embolus (PE) Code(s): Z86.711 - PERSONAL HISTORY OF PULMONARY EMBOLISM SNOMED Code(s): 040879281 Comment: - On coumadin - INR 3.24 11/01 - CT chest/abd/pelvis with no new findings (3) Diabetes Code(s): E11.9 - TYPE 2 DIABETES MELLITUS WITHOUT COMPLICATIONS SNOMED Code(s) : 73731902 Comment: - BG remains stable on lantus and lispro SS - Hgb A1c 7.6 (4) Hypertension Code(s): I10 - ESSENTIAL (PRIMARY) HYPERTENSION SNOMED Code(s): 91345866 Comment: - Continue lisinopril daily with hydralizine PRN, stable (5) Hypothyroid Code(s): E03.9 - HYPOTHYROIDISM, UNSPECIFIED SNOMED Code(s): 82029788 Comment: - Synthroid daily Status and Disposition: Remain inpatient stress in AM to r/o ACS Counseling and/or Coordination of Care Minutes: coordinated with patient and staff
[2017-11-02] MEDS: HYDROcodone/ACETAMIN 5-325 MG* 1 TAB PO PRN (11:30)
[2017-11-02] MEDS: Clobetasol 0.05% OINT* 30 GM TUBE TOPICAL SCH ×2 (15:51→20:58)
[2017-11-02] MEDS: Warfarin TAB(*) 4 MG PO SCH (17:26)
[2017-11-02] MEDS: Insulin GLARGINE(*) 1 UNITS UNIT SUBCUT SCH (20:58)
[2017-11-03] MEDS: Levothyroxine TAB* 150 MCG TAB PO SCH (05:33)
[2017-11-03] MEDS: Insulin LISPRO* 1 UNITS UNIT SUBCUT SCH ×2 (07:18→12:08)
[2017-11-03] MEDS ORDERED: Aminophylline IV* 25 MG/ML 10 ML VIAL ONE (09:07)
[2017-11-03] MEDS ORDERED: Regadenoson* 0.4 MG/5 ML SYRINGE ONE (09:07)
[2017-11-03] MEDS: amLODIPine TAB* 5 MG PO SCH (10:24)
[2017-11-03] MEDS: Clobetasol 0.05% OINT* 30 GM TUBE TOPICAL SCH (10:24)
[2017-11-03] MEDS: Lisinopril TAB* 10 MG PO SCH (10:24)
[2017-11-03 11:36] VITALS: BP 152/64
--- NOTE | 2017-11-03 13:46 | RAD ---
HISTORY: Chest pain, hypertension, hyperlipidemia, obesity, diabetes COMPARISONS: None TECHNIQUE: A 1 day stress/rest myocardial perfusion study was performed, with pharmacologic stress. The stress portion was monitored by Dr. Alonzo. Gated SPECT imaging was performed, without CT-based attenuation correction secondary to patient body habitus DOSE: Stress: Technetium 99m tetrofosmin, 25.15 millicuries, injected at 9:15 AM on November 03, 2017 Rest: Technetium 99m tetrofosmin, 10.83 millicuries, injected at 6:30 AM on November 03, 2017 Pharmacologic agent: Lexiscan FINDINGS: CARDIAC MONITORING: No EKG criteria of ischemia with stress EF: 56% TID: 1 MOTION: Normal motion, with normal wall thickening. PERFUSION: There are no fixed or reversible perfusion defects. OTHER: None IMPRESSION: NO FIXED OR REVERSIBLE PARENCHYMAL PERFUSION DEFECTS ASSESSMENT: LOW RISK. Based on imaging criteria from ACC/AHA 2002. Guideline Update for the Management of Patient's with Chronic Stable Angina, table 23. Noninvasive Risk Stratification. CPT II Codes: 6921Z4E
--- NOTE | 2017-11-04 09:07 | DS ---
CC: Dr. Verma * DISCHARGE SUMMARY: DATE OF ADMISSION: 10/31/17 DATE OF DISCHARGE: 11/03/17 PRIMARY CARE PROVIDER: Dr. Verma. MY ATTENDING WHILE IN THE HOSPITAL: Dr. Jerome Patiño * (DICTATED BY ANTONY SANTANA) CONSULTING PROVIDER: Dr. Lidia Blake of Cardiology. PRIMARY DISCHARGE DIAGNOSIS: Bradycardia and palpitations. SECONDARY DISCHARGE DIAGNOSES: 1. Pulmonary embolism. 2. Prostate cancer, post radiation. 3. Type 2 diabetes. 4. Hypertension. 5. Hypothyroidism. STUDIES DONE WHILE IN THE HOSPITAL: EKG from 10/31/17 shows normal sinus rhythm , no ST segment changes, bradycardic, T-wave inversion in aVL, U waves present in V3, V4, V5, V6. No other abnormalities. EKG repeat from 10/31/17 shows normal sinus rhythm, no other significant changes, U waves still present. Chest x-ray from 10/31/17 read as no radiographic evidence for acute cardiopulmonary abnormality. Chest, abdomen and pelvis CT from 10/31/17 read as : Lungs are clear. No mediastinal hilar lymphadenopathy, coronary artery calcifications, otherwise heart grossly normal. Liver, spleen, pancreas, adrenal glands grossly normal, gallbladder is normal, kidneys are normal. Evaluation of gastrointestinal tract limited due to absence of oral contrast, small amount of colonic diverticula, mild inflammatory changes without gross mesenteric or retroperitoneal lymphadenopathy, degenerative changes, pelvic viscera normal. Brain CT from 10/31/17 read as no chronic findings other than described above. CT of the brain without evidence for acute intracranial abnormality. Transthoracic echocardiogram from 11/01/17 read as moderate concentric left ventricular hypertrophy. Normal left ventricular systolic function. Ejection fraction which is 50% to 55%, abnormal left ventricular systolic function. Right chamber, global systolic function normal with mild chamber dilatation, aortic valve sclerotic. Trace mitral regurg, trace tricusp regurg compared to prior echo of 04/06/07, LVH has progressed from mild, LVEF stable, MR previously mild, there is mild dilatation of the ascending aorta. Nuclear medicine scan from 11/03/17 read as low risk based on imaging criteria from ACC AHA 2002 guideline update, no management for patient's apparently stable angina. MEDICATIONS AT DISCHARGE: 1. Warfarin 5 mg p.o. daily. 2. Lisinopril 40 mg p.o. daily. 3. Lantus 40 units subcutaneous q.p.m. 4. [place] 5/325 one tab p.o. q.4 hours as needed. 5. Synthroid 150 mcg p.o. daily. 6. Invokana 100 mg p.o. daily. 7. Insulin Aspart 1 to 18 units subcutaneously t.i.d. New medication at discharge: None. Medications discontinued on date of discharge: None. HOSPITAL COURSE: This is a brief summary of patient's presentation, for more details please see the history and physical from Radha Dan NP from 10/31/17. In brief, the patient is a 76-year-old male with past medical history significant for the above presented with lightheadedness and low heart rate taken by his . The patient also had pain in his right shoulder and took a hydrocodone when he had lightheadedness with elevated blood pressure and low heart rate. The patient came to the emergency room, the patient also admitted to an episode of syncope while he was walking accompanied by shortness of breath and severe chest pain. The patient's troponins were normal. The patient 's INR was increased slightly to 3.43, blood pressure was as high as 216 systolic. No other abnormalities. The patient was due to his chest pain sent in to rule out SC protocol; however, due to the long holiday weekend, this will not be done until Thursday. The patient was kept due to high risk, Cardiology was consulted, consultation recommended completing the rule out SC protocol, but brought up to the hospital if tachyarrhythmia. The patient remained uneventfully in the hospital with no abnormalities on telemetry for 4 days. The patient had a nuclear transthoracic echocardiogram as above in Nuclear Medicine with myocardial scan as above. The patient remained asymptomatic and will be discharged home to follow up with his primary care provider for the possibility of Holter monitor to investigate other sinus tachyarrhythmia. PHYSICAL EXAM: General: The patient is a 76-year-old male who appears stated age and sitting comfortably in bed, in no acute distress. Vital Signs: At the time of discharge, temperature 98.3, heart rate 57, respiratory rate 20, oxygen saturation 99% on room air, blood pressure 132/64. HEENT: Head normocephalic, atraumatic, sclerae anicteric. No conjunctival injection. Nasal mucosa moist. Oral mucosa moist. No pharyngeal erythema, discharge, or exudate. Neck: Supple. Lymph: No lymphadenopathies. No carotid bruits auscultated. Cardiac : Regular rate and rhythm. No clicks, murmurs, gallops or rubs. Pulses are 2 + bilateral dorsalis pedis, posterior tibialis and brachioradialis. Respiratory : Clear to auscultation bilaterally. No wheezes, rales, or rhonchi. Good air exchange bilaterally. Abdomen: Soft, nontender, nondistended. Bowel sounds present and normoactive in all 4 quadrants. No hepatosplenomegaly. No abdominal bruits auscultated. Genitourinary: No suprapubic tenderness or CVA tenderness. Skin: Clean, dry, intact. 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 No other significant abnormalities. Neuro: Cranial nerves II through XII grossly intact. Alert and oriented x3. No gross focal deficits. Psychiatric: Pleasant and cooperative. LABORATORY DATA: Point of care glucoses range between 127 and 192. Hemoglobin A1c 7.6, troponin I 0.00 x2 and 0.01 x1. LDL cholesterol 102, HDL cholesterol 36.2, total cholesterol 178. Other pertinent abnormalities, INR increased to 3.43 on admission, decreased to 2.24 with warfarin held. No other abnormalities. DISCHARGE PLAN: The patient will be discharged to home to follow up with his primary care provider. The patient should consider a Holter monitor for long- term monitoring tachyarrhythmias. The patient to return to the hospital for any alarming symptoms like syncope, chest pain. The patient should followup with INR continued as scheduled. The patient should have blood pressure monitored at home if possible, should follow up with primary care provider for medication adjustments. The patient's diabetes is under moderately good control. The patient to engage in activities as tolerated, have consistent carbohydrate, heart healthy diet. TIME SPENT: Approximately 60 minutes was spent on this discharge, 30 of which spent [id number] with the patient taking history and physical and discussing treatment plan. ANTONY SANTANA [id number]/[facility] #: [id number] CHER
--- NOTE | 2017-11-05 10:56 | ED ---
Akanksha Ryan Abhishek, scribed for George Timmons MD on 10/31/17 at 1353 . Dizziness - HPI Summary HPI Summary: This patient is a 76 year old M presenting to [facility] with a chief complaint of dizziness since 10/30/17 at 0000. The patient rates the pain 0/10 in severity. Symptoms aggravated by nothing. Symptoms alleviated by pain pills. Patient reports lightheadedness, hypertensive, bradycardia, shoulder pain, back pain ( previously but not current), and diaphoresis. Pt states he has taken three pain pills, and his high blood pressure medication prior to entering the ED. The pt is also on 4 shots of insulin and his sugar was at 116 earlier today. Pt states that he thought he was going to pass out." - History Of Current Complaint Chief Complaint: EDDizziness Stated Complaint: CHEST PAIN Time Seen by Provider: 10/31/17 13:41 Hx Obtained From: Patient Onset/Duration: Still Present Timing: Constant Character: Lightheaded, Dizzy Aggravating Factor(s): Nothing Alleviating Factor(s): Other - pain pills and high blood pressure medication Associated Signs And Symptoms: Positive: Diaphoresis, Other: - shoulder pain, back pain, bradycardia, hypertensive and dizziness - Risk Factors Cardiac Risk Factors: Hypertension CVA Risk Factor: Hypertension - Allergies/Home Medications Allergies/Adverse Reactions: Allergies Allergy/AdvReac Type Severity Reaction Status Date / Time No Known Allergies Allergy Verified 08/18/15 11:57 PMH/Surg Hx/FS Hx/Imm Hx Endocrine/Hematology History: Reports: Hx Anticoagulant Therapy - "for blood clots", Hx Diabetes, Hx Thyroid Disease Cardiovascular History: Reports: Hx Hypertension Denies: Hx Atrial Fibrillation - Cancer History Cancer Type, Location and Year: prostate Infectious Disease History: No Infectious Disease History: Denies: History Other Infectious Disease, Traveled Outside the [place] in Last 30 Days - Family History Known Family History: Positive: Other - Cancer (prostate, breast). Negative aneurysm. - Social History Occupation: Employed Part-time - "[employer]" Lives: With Family Alcohol Use: None Substance Use Type: Reports: None Hx Tobacco Use: Yes Smoking Status (MU): Former Smoker Amount Used/How Often: quit in 1979 Review of Systems Positive: Skin Diaphoresis Eyes: Negative ENT: Negative Cardiovascular: Other - bradycardia, and hypertensive Respiratory: Negative Gastrointestinal: Negative Genitourinary: Negative Musculoskeletal: Other - shoulder pain, back pain Skin: Negative Neurological: Other - lightheadedness, dizziness Psychological: Normal All Other Systems Reviewed And Are Negative: Yes Physical Exam - Summary Physical Exam Summary: Constitutional: Well-developed, Well-nourished, Alert. (-) Distressed Skin: Warm, Dry HENT: Normocephalic; Atraumatic Eyes: Conjunctiva normal Neck: Musculoskeletal ROM normal neck. (-) JVD, (-) Stridor, (-) Tracheal deviation Cardio: Rhythm regular, slow pulses, Heart sounds normal; Intact distal pulses; The pedal pulses are 2+ and symmetric. Radial pulses are 2+ and symmetric. (-) Murmur Pulmonary/Chest wall: Effort normal. (-) Respiratory distress, (-) Wheezes, (-) Rales Abd: Soft, (-) Tenderness, (-) Distension, (-) Guarding, (-) Rebound Musculoskeletal: (-) Edema, Pain Not reproducible in his right shoulder Lymph: (-) Cervical adenopathy Neuro: Alert, Oriented x3 Psych: Mood and affect Normal Triage Information Reviewed: Yes Vital Signs On Initial Exam: Initial Vitals Temp Pulse Resp BP Pulse Ox 95.1 F 49 20 216/68 94 10/31/17 12:43 10/31/17 12:43 10/31/17 12:43 10/31/17 12:43 10/31/17 12:43 Vital Signs Reviewed: Yes Diagnostics - Vital Signs Vital Signs Temp Pulse Resp BP Pulse Ox 10/31/17 12:43 95.1 F 49 20 216/68 94 - Laboratory Lab Results: Lab Results 10/31/17 10/31/17 10/31/17 Range/Units 13:02 13:02 13:02 WBC 10.1 (3.5-10.8) 10^3/ul RBC 5.03 (4.0-5.4) 10^6/ul Hgb 15.5 (14.0-18.0) g/dl Hct 46 (42-52) % MCV 91 (80-94) fL MCH 31 (27-31) pg MCHC 34 (31-36) g/dl RDW 14 (10.5-15) % Plt Count 219 (150-450) 10^3/ul MPV 8 (7.4-10.4) um3 Neut % (Auto) 77.2 (38-83) % Lymph % (Auto) 17.5 L (25-47) % Lasalle % (Auto) 4.7 (1-9) % Eos % (Auto) 0.1 (0-6) % Baso % (Auto) 0.5 (0-2) % Absolute Neuts (auto) 7.8 H (1.5-7.7) 10^3/ul Absolute Lymphs (auto) 1.8 (1.0-4.8) 10^3/ul Absolute Monos (auto) 0.5 (0-0.8) 10^3/ul Absolute Eos (auto) 0 (0-0.6) 10^3/ul Absolute Basos (auto) 0 (0-0.2) 10^3/ul Absolute Nucleated RBC 0 10^3/ul Nucleated RBC % 0 INR (Anticoag Therapy) Pending APTT 49.8 H (26.0-36.3) seconds D-Dimer, Quantitative < 200 (Less Than 230) ng/mL Sodium Pending Potassium Pending Chloride Pending Carbon Dioxide Pending Anion Gap Pending BUN Pending Creatinine Pending Est GFR ( Amer) Pending Est GFR (Non-Af Amer) Pending BUN/Creatinine Ratio Pending Glucose Pending Lactic Acid (0.5-2.0) mmol/L Calcium Pending Total Bilirubin Pending AST Pending ALT Pending Alkaline Phosphatase Pending Total Creatine Kinase Pending CK-MB (CK-2) 1.9 (0.6-6.3) ng/mL Myoglobin 23.9 (17.4-105.7) ng/mL Troponin I 0.00 (<0.04) ng/mL Total Protein Pending Albumin Pending Globulin Pending Albumin/Globulin Ratio Pending 10/31/17 Range/Units 13:02 WBC (3.5-10.8) 10^3/ul RBC (4.0-5.4) 10^6/ul Hgb (14.0-18.0) g/dl Hct (42-52) % MCV (80-94) fL MCH (27-31) pg MCHC (31-36) g/dl RDW (10.5-15) % Plt Count (150-450) 10^3/ul MPV (7.4-10.4) um3 Neut % (Auto) (38-83) % Lymph % (Auto) (25-47) % Lasalle % (Auto) (1-9) % Eos % (Auto) (0-6) % Baso % (Auto) (0-2) % Absolute Neuts (auto) (1.5-7.7) 10^3/ul Absolute Lymphs (auto) (1.0-4.8) 10^3/ul Absolute Monos (auto) (0-0.8) 10^3/ul Absolute Eos (auto) (0-0.6) 10^3/ul Absolute Basos (auto) (0-0.2) 10^3/ul Absolute Nucleated RBC 10^3/ul Nucleated RBC % INR (Anticoag Therapy) APTT (26.0-36.3) seconds D-Dimer, Quantitative (Less Than 230) ng/mL Sodium Potassium Chloride Carbon Dioxide Anion Gap BUN Creatinine Est GFR ( Amer) Est GFR (Non-Af Amer) BUN/Creatinine Ratio Glucose Lactic Acid 1.8 (0.5-2.0) mmol/L Calcium Total Bilirubin AST ALT Alkaline Phosphatase Total Creatine Kinase CK-MB (CK-2) (0.6-6.3) ng/mL Myoglobin (17.4-105.7) ng/mL Troponin I (<0.04) ng/mL Total Protein Albumin Globulin Albumin/Globulin Ratio Result Diagrams: 10/31/17 13:02 10/31/17 13:02 Lab Statement: Any lab studies that have been ordered have been reviewed, and results considered in the medical decision making process. - Radiology Chest X-ray Radiology Interpretation Completed By: Radiologist - CXR reveals, per radiologist, No radiographic evidence for acute cardiopulmonary abnormality on this portable chest x-ray. ED physician has reviewed this radiology report and agrees. - CT Chest A/P CT CT Interpretation Completed By: Radiologist - Chest A/P CT reveals 1. No aortic dissection, pathologic aneurysmal dilatation or other acute vascular abnormality is identified. 2. There are chronic and degenerative changes described in the body the report that are unlikely to be related to the patient' s current acute presentation. ED physician has reviewed this radiology report and agrees. Brain CT CT Interpretation Completed By: Radiologist - Brain CT reveals Stable chronic findings as described above relative to the August 07, 2010 CT the brain without evidence of acute intracranial abnormality. ED physician has reviewed this radiology report and agrees. - EKG 1247 EKG Rhythm: Sinus Bradycardia - [address] Segment: Normal EKG Interpretation: An EKG at 1247 reveals Sinus bradycardia at 45 and negative STEMI Dizzy Course/Dx - Course Course Of Treatment: This patient is a 76 year old M presenting to [facility] with a chief complaint of dizziness since 10/30/17 at 0000. Symptoms alleviated by pain pills. Patient reports lightheadedness, hypertensive, bradycardia, shoulder pain, back pain (previously but not current), and diaphoresis. Pt states he has taken three pain pills, and his high blood pressure medication prior to entering the ED. The pt is also on 4 shots of insulin and his sugar was at 116 earlier today. Pt states that he thought he was going to pass out." An EKG at 1247 reveals Sinus bradycardia at 45 and negative STEMI. CXR reveals, per radiologist, No radiographic evidence for acute cardiopulmonary abnormality on this. portable chest x-ray. ED physician has reviewed this radiology report and agrees. Chest A/P CT reveals. 1. No aortic dissection, pathologic aneurysmal dilatation or other acute vascular abnormality is identified. 2. There are chronic and degenerative changes described in the body the report that are unlikely to be related to the patient's current acute presentation. ED physician has reviewed this radiology report and agrees.Brain CT reveals Stable chronic findings as described above relative to the August 07, 2010. CT the brain without evidence of acute intracranial abnormality. ED physician has reviewed this radiology report and agrees. We dicussed patient care with Dr. Knight at 1500 and he accepts patient for admittance. Pt will be admitted as an inpatient at the [facility] [place]. The dx will be unspecified chest pain, hypertensive urgency, and bradycardia. the patient agrees with this plan. - Diagnoses Provider Diagnoses: Chest pain, unspecified, Hypertensive urgency, Bradycardia - Provider Notifications Discussed Care Of Patient With: Marbella Knight - we discussed patient care and she accepts patient for admittance. Time Discussed With Above Provider: 15:00 Instructed by Provider To: Admit As Inpatient Discharge - Discharge Plan Condition: Stable Disposition: ADMITTED TO [facility] Referrals: Demarcus Verma MD [Primary Care Provider] - The documentation as recorded by the Akanksha gilliland Abhishek accurately reflects the service I personally performed and the decisions made by me, George Timmons MD.
== END 2017-11-03 14:20 | disposition home or self-care (01) ==
LOC: ED 12:39 → MEDTELE 15:36
PROVIDERS: ADMIT Hospitalist; ATTEND Internal Medicine
DX: R07.89 Other chest pain (principal); R00.1 Bradycardia, unspecified; R00.2 Palpitations; R42 Dizziness and giddiness; Z85.46 Personal history of malignant neoplasm of prostate; Z86.711 Personal history of pulmonary embolism; I37.1 Nonrheumatic pulmonary valve insufficiency; I51.7 Cardiomegaly; E11.9 Type 2 diabetes mellitus without complications; Z79.4 Long term (current) use of insulin; Z79.899 Other long term (current) drug therapy; Z87.891 Personal history of nicotine dependence; I10 Essential (primary) hypertension; E03.9 Hypothyroidism, unspecified; Z79.01 Long term (current) use of anticoagulants; Z86.718 Personal history of other venous thrombosis and embolism; R61 Generalized hyperhidrosis; E66.01 Morbid (severe) obesity due to excess calories
CPT/HCPCS: 36415; 70450; 71010; 71275; 74174; 78452; 80053; 80061; 82550; 82553; 83036; 83605; 83874; 84484; 85025; 85379; 85610; 85730; 93005; 93017; 93306; 94760; 99283; A9270-GY; A9502; C8929; G0378; J0280; J0360; J2785; Q9967

== ENCOUNTER 2017-12-10 16:53 | Emergency (ER) | payer MEDICARE ==
[2017-12-10 16:59] VITALS: BP 188/73
--- NOTE | 2017-12-10 17:49 | UC ---
Lotus Ryan Julia, scribed for Collin Seay MD on 12/10/17 at 1739 . Ear Complaint HPI - HPI Summary HPI Summary: This patient is a 77 year old M presenting to [facility] [place] [facility] with a chief complaint of bleeding from the R ear since 15:00. Patient denies pain, nausea, vomiting. Patient reports a fall on ice two weeks ago, hit his back and head on the ground, and LOC. He states no head pain or neurological symptoms. He cleaned his ear with a q tip this afternoon, which is unusual for him. He noticed the bleeding about an hour after using the q tip. - History of Current Complaint Chief Complaint: UCHeadInjury Stated Complaint: HEAD INJURY Time Seen by Provider: 12/10/17 17:12 Hx Obtained From: Patient Onset/Duration: Lasting Hours Pain Intensity: 0 Associated Signs/Symptoms: Positive: Discharge - bleeding Related History: Other (Noted In Comments) - recent fall - Allergies/Home Medications Allergies/Adverse Reactions: Allergies Allergy/AdvReac Type Severity Reaction Status Date / Time No Known Allergies Allergy Verified 12/10/17 16:59 PMH/Surg Hx/FS Hx/Imm Hx Other History Of: Anticoagulant Therapy - "for blood clots" - Surgical History Surgical History: Yes - Family History Known Family History: Positive: Other - Cancer (prostate, breast). Negative aneurysm. - Social History Alcohol Use: None Substance Use Type: None Smoking Status (MU): Former Smoker Amount Used/How Often: quit in 1979 Review of Systems Constitutional: Negative - pain ENT: Other - ear bleeding Gastrointestinal: Negative Neurological: Negative All Other Systems Reviewed And Are Negative: Yes Physical Exam Triage Information Reviewed: Yes Vital Signs: Initial Vital Signs Temp 98.2 F 12/10/17 16:56 Pulse 71 12/10/17 16:56 Resp 18 12/10/17 16:56 BP 188/73 12/10/17 16:56 Pulse Ox 98 12/10/17 16:56 Vital Signs Reviewed: Yes - Additional Comments General: well-appearing, no pain distress Skin: warm, color reflects adequate perfusion, dry Head: normal Eyes: EOMI, KATELIN ENT: R anterior ear canal near opening there is a 4mm abrasion with clotting, on floor of ear canal there is blood, TM are normal with no blood behind TM Neck: supple, nontender Respiratory: CTA, breath sounds present Cardiovascular: RRR Abdomen: soft, nontender Bowel: present Musculoskeletal: normal, strength/ROM intact Neurological: normal, sensory/motor intact, A&O x3 Psychological: affect/mood appropriate Ear Complaint Course/Dx - Course Course Of Treatment: PATIENT HAD USED A Q TIP IN THE RIGHT EAR ABOUT ONE HOUR PRIOR TO NOTICING BLOOD. PATIENT STRUCK HIS HEAD 2 WEEKS AGO. THERE WAS NO CT HEAD DONE AT THAT TIME. PATIENT REPORTS A ONE SECOND LOC, NO PERSTANT HEADACHE AFTER THE DAY OF THE INJURY AND NO NEUROLOGIC SYMPTOMS SINCE THE FALL. THERE IS NO HEMOTYMPANUM AND THE ABRASION IS ONLY ON THE ANTERIOR EAR CANAL DISTAL TO THE TM. PATIENT AGREED TO HAVE FURTHER EVALUATION WITH A HEAD CT AT THE ED IF ANY OF HIS SYMPTOMS WORSEN. - Differential Dx/Diagnosis Provider Diagnoses: RIGHT EAR CANAL ABRASION Discharge - Discharge Plan Condition: Stable Disposition: HOME Patient Education Materials: Abrasion (ED) Referrals: Demarcus Verma MD [Primary Care Provider] - Additional Instructions: ON EXAM, THERE IS AN ABRASION IN YOUR RIGHT EAR CANAL. IF NOT COMPLETELY IMPROVED, FOLLOW UP WITH YOUR DOCTOR. GO TO THE EMERGENCY DEPARTMENT FOR ANY WORSENING OF YOUR CONDITION; HEADACHES, CONTINUED BLEEDING, WEAKNESS, NUMBNESS, YOU FEEL CONFUSED OR QUESTIONS OR CONCERNS. The documentation as recorded by the Lotus gilliland Julia accurately reflects the service I personally performed and the decisions made by me, Collin Seay MD.
== END 2017-12-10 17:45 | disposition home or self-care (01) ==
LOC: UCEAST 16:53
DX: S00.411A Abrasion of right ear, initial encounter (principal); X58.XXXA Exposure to other specified factors, initial encounter; Y93.E8 Activity, other personal hygiene; Y92.9 Unspecified place or not applicable; Z91.81 History of falling; Z79.01 Long term (current) use of anticoagulants; Z87.891 Personal history of nicotine dependence
CPT/HCPCS: 99211; G0463

== ENCOUNTER 2017-12-11 06:18 | Emergency (ER) | payer MEDICARE ==
[2017-12-11] MEDS ORDERED: Amoxicillin/Clavulanate TAB* 875 MG PO ONE (07:38)
--- NOTE | 2017-12-11 08:38 | RAD ---
INDICATION: Right shoulder injury. TECHNIQUE: 4 views of the right shoulder were obtained. FINDINGS: The bones are in normal alignment. No fracture is seen. 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 IMPRESSION: NO EVIDENCE OF FRACTURE.
[2017-12-11 09:19] VITALS: BP 143/56
--- NOTE | 2017-12-12 09:10 | ED ---
Michelle Ryan Thomas scribed for Dami Gaytan MD on 12/11/17 at 0735 . Throat Pain/Nasal Congestion - HPI Summary HPI Summary: The patient is a 77 year old male presenting with bleeding from his right ear that began yesterday one hour after using a Q tip. The patient has decreased hearing in the right ear. The patient fell two weeks ago, and he has rib pain, shoulder pain, and back pain from this fall. He was evaluated by his primary care physician, and he had x-rays of his back and ribs that were negative for fracture. He did not have a CT of his head. The patient was evaluated at urgent care yesterdays. - History of Current Complaint Chief Complaint: EDGeneral Time Seen by Provider: 12/11/17 07:20 Hx Obtained From: Patient Onset/Duration: Lasting Days - 1, Still Present Severity: Moderate Cough: None Related History: Other (Noted In Comments) - Q tip use yesterday - Allergies/Home Medications Allergies/Adverse Reactions: Allergies Allergy/AdvReac Type Severity Reaction Status Date / Time No Known Allergies Allergy Verified 12/10/17 16:59 PMH/Surg Hx/FS Hx/Imm Hx Endocrine/Hematology History: Reports: Hx Anticoagulant Therapy - "for blood clots", Hx Diabetes, Hx Thyroid Disease Cardiovascular History: Reports: Hx Hypercholesterolemia, Hx Hypertension Denies: Hx Angina, Hx Atrial Fibrillation, Hx Coronary Artery Disease, Hx Myocardial Infarction, Hx Valvular Heart Disease Respiratory History: Reports: Hx Sleep Apnea, Other Respiratory Problems/ Disorders Denies: Hx Asthma, Hx Chronic Obstructive Pulmonary Disease (COPD) History: Reports: Hx Kidney Stones Sensory History: Denies: Hx Contacts or Glasses, Hx Hearing Aid Opthamlomology History: Denies: Hx Contacts or Glasses - Cancer History Cancer Type, Location and Year: prostate - Immunization History Date of Tetanus Vaccine: unknown Date of Influenza Vaccine: NO Infectious Disease History: No Infectious Disease History: Denies: History Other Infectious Disease, Traveled Outside the [place] in Last 30 Days - Family History Known Family History: Positive: Other - Cancer (prostate, breast). Negative aneurysm. - Social History Alcohol Use: None Substance Use Type: Reports: None Hx Tobacco Use: Yes Smoking Status (MU): Former Smoker Amount Used/How Often: quit in 1979 Review of Systems Negative: Fever Positive: Other - bleeding from right ear, decreased hearing in right ear Positive: Other - Rib pain, shoulder pain, back pain All Other Systems Reviewed And Are Negative: Yes Physical Exam - Summary Physical Exam Summary: VITAL SIGNS: Reviewed. GENERAL: Patient is a well-developed and nourished male who is lying comfortable in the stretcher. Patient is not in any acute respiratory distress. HEAD AND FACE: No signs of trauma. No ecchymosis, hematomas or skull depressions. No sinus tenderness. EYES: PERRLA, EOMI x 2, No injected conjunctiva, no nystagmus. EARS: He ruptured his right tympanic membrane. He has some old blood, which I removed in the examination room. MOUTH: Oropharynx within normal limits. NECK: Supple, trachea is midline, no adenopathy, no JVD, no carotid bruit, no c- spine tenderness, neck with full ROM. CHEST: Symmetric, no tenderness at palpation LUNGS: Clear to auscultation bilaterally. No wheezing or crackles. CVS: Regular rate and rhythm, S1 and S2 present, no murmurs or gallops appreciated. ABDOMEN: Soft, non-tender. No signs of distention. No rebound no guarding, and no masses palpated. Bowel sounds are normal. EXTREMITIES: FROM in all major joints, no edema, no cyanosis or clubbing. NEURO: Alert and oriented x 3. No acute neurological deficits. Speech is normal and follows commands. SKIN: Dry and warm Triage Information Reviewed: Yes Vital Signs On Initial Exam: Initial Vitals Temp Pulse Resp BP Pulse Ox 98.1 F 70 18 162/58 94 12/11/17 06:23 12/11/17 06:23 12/11/17 06:23 12/11/17 06:23 12/11/17 06:23 Vital Signs Reviewed: Yes Diagnostics - Vital Signs Vital Signs Temp Pulse Resp BP Pulse Ox 12/11/17 06:23 98.1 F 70 18 162/58 94 - Laboratory Lab Statement: Any lab studies that have been ordered have been reviewed, and results considered in the medical decision making process. - Radiology Shoulder XR Xray Interpretation: No Acute Changes - NO EVIDENCE FOR FRACTURE. Dr. Gaytan has reviewed this report. Radiology Interpretation Completed By: Radiologist EENT Course/Dx - Course Assessment/Plan: The patient is a 77 year old male presenting with bleeding from his right ear that began yesterday one hour after using a Q tip. The patient has decreased hearing in the right ear. The patient fell two weeks ago, and he has rib pain, shoulder pain, and back pain from this fall. He was evaluated by his primary care physician, and he had x-rays of his back and ribs that were negative for fracture. He did not have a CT of his head. The patient was evaluated at urgent care yesterdays. In the physical exam, it seems that the patient had a perforated tympanic membrane. I gave him prophylactic antibiotics with Augmentin, and I advised follow up with ENT. The right shoulder x-ray is negative for any fracture or dislocation. He will take Tylenol and ibuprofen for the pain. - Diagnoses Provider Diagnoses: Tympanic membrane perforation, Shoulder pain Discharge - Discharge Plan Condition: Stable Disposition: HOME Prescriptions: Amoxicillin/Clavulanate TAB* [Augmentin TAB 875*] 875 mg PO BID #10 tab Patient Education Materials: Ruptured Eardrum (ED), Shoulder Pain (ED) Referrals: Castro Gonsalez MD [Medical Doctor] - 3 Days Additional Instructions: NEVER USE Q-TIPS ON YOUR EARS AGAIN. DO NOT PUT ANYTHING INSIDE YOUR EARS. Follow up with Dr. Gonsalez, ENT physician, in the next three days. You could follow up with your ENT physician in [place] the next three days if you prefer. Return to the emergency department for any new or worsening symptoms. The documentation as recorded by the Michelle gilliland Thomas accurately reflects the service I personally performed and the decisions made by me, Dami Gaytan MD.
== END 2017-12-11 09:18 | disposition home or self-care (01) ==
LOC: ED 06:18
DX: H72.91 Unspecified perforation of tympanic membrane, right ear (principal); M25.511 Pain in right shoulder; W19.XXXA Unspecified fall, initial encounter; Y92.9 Unspecified place or not applicable; Z87.891 Personal history of nicotine dependence
CPT/HCPCS: 99282; A9270-GY

== ENCOUNTER 2018-11-09 09:14 | Day surgery (SDC) | payer MEDICARE ==
[~2018-11-09 09:14] MED LIST: Buffered Lidocaine 0.9% SYRIN* 5 ML/SYR SYRINGE INTRADERM ONE
[2018-11-09] MEDS ORDERED: Ketorolac 0.5% OPHTH (NF) 0.5 % 5 ML BTL ONE (09:18)
[2018-11-09] MEDS ORDERED: Cyclopentolate 1% OPTH.SOL* 2 ML BTL ONE (09:18)
[2018-11-09] MEDS ORDERED: Tetracaine 0.5% OPTH.SOL 4 ML* 1 DROP BTL ONE (09:18)
[2018-11-09] MEDS ORDERED: Neomycin/Polymy/Dex OPHTH.OIN* 3.5 GM ONE (09:18)
[2018-11-09] MEDS ORDERED: Lidocaine 1%* 5 ML VIAL ONE (09:18)
[2018-11-09] MEDS ORDERED: Tropicamide 1% OPTH.SOL* BTL ONE (09:18)
[2018-11-09] MEDS ORDERED: Lidocaine 2% PF * 5 ML VIAL ONE (11:43)
[2018-11-09] MEDS ORDERED: Propofol* 10 MG/ML 20 ML BTL ONE (11:43)
[2018-11-09 12:15] VITALS: BP 152/58
--- NOTE | 2018-11-09 13:14 | OP ---
DATE OF OPERATION/DATE OF DICTATION: 11/09/2018 - [facility] DATE OF : 1940. SURGEON: Dr. Anthony Farrell. ELECTRICIAN RECTIFIER MAINTENANCE: None. ANESTHESIA: Topical with intravenous sedation. PRE-OP DIAGNOSIS: Cataract, right eye. POST-OP DIAGNOSIS: Cataract, right eye. OPERATIVE PROCEDURE: Phacoemulsification and cataract extraction with posterior chamber intraocular lens implant, right eye. COMPLICATIONS: None. BLOOD LOSS: None. DESCRIPTION OF PROCEDURE: The patient was brought to the operating room and received a small amount of intravenous sedation. A drop of Tetracaine was placed in his right eye. He was prepped and draped in the usual sterile fashion for ophthalmic surgery and attention was directed to the right eye where a speculum was placed. A paracentesis was created at the 11 o'clock position and 0.1 cc of 1 percent preservative-free Lidocaine was injected into the anterior chamber followed by DisCoVisc. The eye was digitally stabilized while a 2.75 mm keratome was used to create a triplanar clear corneal incision at the 9 o'clock position. A continuous curvilinear capsulorrhexis was created with a cystotome and Utrata forceps. BSS on a cannula was used to hydrodissect the lens from the capsule. Phacoemulsification was performed in a divide-and- conquer technique to create four fragments which were removed. Residual cortical material was removed with irrigation and aspiration. DisCoVisc was used to inflate the capsular bag and an AUOOTO 23.0 diopter lens was folded and inserted into the capsular bag. DisCoVisc was removed using irrigation and aspiration. BSS on a cannula was used to hydrate the corneal stroma and seal the wound. At the end of the case the pupil was round and the lens was centered. The eye was of normal pressure and the wound was water tight. The speculum was removed and topical Maxitrol ointment was placed on the surface of the eye. The eye was closed, patched and shielded and the patient was sent to the recovery room in stable condition with post operative instructions and follow-up appointment given. [id number]/CPS #: [id number] MTDD
== END 2018-11-09 12:25 | disposition home or self-care (01) ==
LOC: OREAST 09:14
PROVIDERS: ATTEND Ophthalmology
DX: H25.11 Age-related nuclear cataract, right eye (principal); E11.40 Type 2 diabetes mellitus with diabetic neuropathy, unspecified; Z79.4 Long term (current) use of insulin; I10 Essential (primary) hypertension; Z86.718 Personal history of other venous thrombosis and embolism; Z79.01 Long term (current) use of anticoagulants; Z85.46 Personal history of malignant neoplasm of prostate; Z86.711 Personal history of pulmonary embolism; G47.33 Obstructive sleep apnea (adult) (pediatric); Z87.891 Personal history of nicotine dependence
CPT/HCPCS: A9270-GY; J2704; V2632

== ENCOUNTER 2018-11-16 06:59 | Day surgery (SDC) | payer MEDICARE ==
[2018-11-16] MEDS ORDERED: Buffered Lidocaine 1% SYRIN* 1 ML/SYRINGE INTRADERM ONE (07:12)
[2018-11-16] MEDS ORDERED: Midazolam* 1 MG/ML 2 ML VIAL (2 MG) ONE (08:15)
[2018-11-16] MEDS ORDERED: fentaNYL* 50 MCG/ML 2 ML VIAL (100 MCG VIAL) ONE (08:15)
[2018-11-16 09:28] VITALS: BP 150/68
[2018-11-16] MEDS ORDERED: Tropicamide 1% OPTH.SOL* BTL ONE (11:12)
[2018-11-16] MEDS ORDERED: Lidocaine 1%* 5 ML VIAL ONE (11:12)
[2018-11-16] MEDS ORDERED: Cyclopentolate 1% OPTH.SOL* 2 ML BTL ONE (11:12)
[2018-11-16] MEDS ORDERED: Tetracaine 0.5% OPTH.SOL 4 ML* 1 DROP BTL ONE (11:12)
[2018-11-16] MEDS ORDERED: Ketorolac 0.5% OPHTH (NF) 0.5 % 5 ML BTL ONE (11:12)
[2018-11-16] MEDS ORDERED: Phenylephrine 2.5% OPTH.SOL* 2 ML BTL ONE (11:12)
[2018-11-16] MEDS ORDERED: Neomycin/Polymy/Dex OPHTH.OIN* 3.5 GM ONE (11:12)
--- NOTE | 2018-11-16 12:42 | OP ---
DATE OF OPERATION/DATE OF DICTATION: 11/16/2018 - [facility] DATE OF : 1940. SURGEON: Dr. Anthony Farrell. SUPERVIS[employer]: None. ANESTHESIA: Topical with intravenous sedation. PRE-OP DIAGNOSIS: Cataract, left eye. POST-OP DIAGNOSIS: Cataract, left eye. OPERATIVE PROCEDURE: Phacoemulsification and cataract extraction with posterior chamber intraocular lens implant, left eye. COMPLICATIONS: None. BLOOD LOSS: None. DESCRIPTION OF PROCEDURE: The patient was brought to the operating room and received a small amount of intravenous sedation. A drop of Tetracaine was placed in his left eye. He was prepped and draped in the usual sterile fashion for ophthalmic surgery and attention was directed to the left eye where a speculum was placed. A paracentesis was created at the 5 o'clock position and 0.1 cc of 1 percent preservative-free Lidocaine was injected into the anterior chamber followed by DisCoVisc. The eye was digitally stabilized while a 2.75 mm keratome was used to create a triplanar clear corneal incision at the 3 o' clock position. A continuous curvilinear capsulorrhexis was created with a cystotome and Utrata forceps. BSS on a cannula was used to hydrodissect the lens from the capsule. Phacoemulsification was performed in a divide-and- conquer technique to create four fragments which were removed. Residual cortical material was removed with irrigation and aspiration. DisCoVisc was used to inflate the capsular bag and an AUOOTO 22.5 diopter lens was folded and inserted into the capsular bag. DisCoVisc was removed using irrigation and aspiration. BSS on a cannula was used to hydrate the corneal stroma and seal the wound. At the end of the case the pupil was round and the lens was centered. The eye was of normal pressure and the wound was water tight. The speculum was removed and topical Maxitrol ointment was placed on the surface of the eye. The eye was closed, patched and shielded and the patient was sent to the recovery room in stable condition with post operative instructions and follow-up appointment given. [id number] #: [id number] MTDD
[2018-11-17] MEDS ORDERED: Acetaminophen TAB* 325 MG PO PRN (05:00)
== END 2018-11-16 09:38 | disposition home or self-care (01) ==
LOC: OREAST 06:59
PROVIDERS: ATTEND Ophthalmology
DX: H25.12 Age-related nuclear cataract, left eye (principal); E11.9 Type 2 diabetes mellitus without complications; Z79.4 Long term (current) use of insulin; I10 Essential (primary) hypertension; E78.5 Hyperlipidemia, unspecified; Z86.718 Personal history of other venous thrombosis and embolism; Z79.01 Long term (current) use of anticoagulants; Z86.711 Personal history of pulmonary embolism; Z68.41 Body mass index [BMI] 40.0-44.9, adult
CPT/HCPCS: A9270-GY; J2250; J3010; V2632